=== PATIENT | male | born 1935 | race Caucasian/White ===

== ENCOUNTER 2017-11-05 09:51 | Outpatient (CLI) | payer MEDICARE, OTHER ==
[~2017-11-05] VITALS: Ht 167.6 cm; Wt 58.1 kg
[~2017-11-05 09:51] MED LIST: BECL8.7A7 INH; CLOP75TA15 PO; DRON400T2 PO; MIRT15TA PO; NITR0.4T SL; RIVA20TA PO; ROSU10TA PO; ZOLP12.52 PO
[2017-11-05 10:35] LABS: TOTAL HEMOGLOBIN 14.7 G/dl (14.0-18.0)
[2017-11-05] MEDS ORDERED: albuterol 2.5 MG/3 ML nebule NEB ONE (10:45)
== END 2017-11-05 23:59 | disposition home or self-care (01) ==
LOC: RT 09:51
PROVIDERS: ATTEND Internal Medicine Pulmonary Disease
DX: J44.9 Chronic obstructive pulmonary disease, unspecified (principal); Z88.2 Allergy status to sulfonamides; Z88.5 Allergy status to narcotic agent; Z88.8 Allergy status to other drugs, medicaments and biological substances; Z95.1 Presence of aortocoronary bypass graft; Z98.52 Vasectomy status; Z79.899 Other long term (current) drug therapy; Z87.891 Personal history of nicotine dependence
CPT/HCPCS: 85018; 94060; 94727; 94729; 94760

== ENCOUNTER 2019-02-26 20:56 | Inpatient (IN) | payer MEDICARE, OTHER ==
[~2019-02-26] VITALS: Ht 167.6 cm; Wt 61.2 kg
[~2019-02-26 20:56] MED LIST changes: -ROSU10TA PO; +ROSU10TA2 PO
[2019-02-26] MEDS ORDERED: ondansetron/PF 4mg/2ml inj IV ONE (21:30)
[2019-02-26] MEDS ORDERED: morphine 4 MG/ML inj SYRINge IV ONE (21:30)
--- NOTE | 2019-02-26 21:30 | NUR ---
Dr. Harding made aware Pt triaged as level [address] Mejias entered orders and stated trauma level could be called off.
[2019-02-26 22:06] LABS: BASOPHILS % (AUTO) 0.3 % (0-1); EOSINOPHILS % (AUTO) 0.2 % (0-6); HEMATOCRIT 43.6 % (42.0-52.0); LYMPHOCYTES % (AUTO) 8.1 % (21-51); MEAN CORPUSCULAR HEMOGLOBIN 32.5 PG (27.0-31.0); MEAN CORPUSCULAR HGB CONC 34.5 g/dL (33.0-36.5); MEAN CORPUSCULAR VOLUME 94.2 FL (78-98); MEAN PLATELET VOLUME 8.1 FL (7.4-10.4); MONOCYTES # (AUTO) 1.1 X10'3 (0-0.9); MONOCYTES % (AUTO) 9.2 % (2-12); NEUTROPHILS % (AUTO) 82.2 % (42-75); PLATELET COUNT 265 X10'3 (140-440); RED BLOOD COUNT 4.63 X10'6 (4.70-6.10); RED CELL DISTRIBUTION WIDTH 13.8 % (11.5-14.5); WHITE BLOOD COUNT 12.2 X10'3 (4.5-11.0)
[2019-02-26 22:15] LABS: ALANINE AMINOTRANSFERASE 25 U/L (12-78); ALBUMIN 4.2 G/DL (3.4-5.0); ALBUMIN/GLOBULIN RATIO 1.1 (1.1-1.5); ALKALINE PHOSPHATASE 83 IU/L (46-116); ANION GAP 11 (8-16); ASPARTATE AMINO TRANSFERASE 23 U/L (10-37); BILIRUBIN,TOTAL 0.7 MG/DL (0.1-1.0); BLOOD UREA NITROGEN 19 MG/DL (7-18); BUN/CREATININE RATIO 17.9 (5.4-32.0); CALCIUM 9.6 MG/DL (8.5-10.1); CHLORIDE 93 MMOL/L (99-107); CREATININE 1.06 MG/DL (0.60-1.10); GLUCOSE 207 MG/DL (70-104); POTASSIUM 4.2 MMOL/L (3.5-5.1); SODIUM 130 MMOL/L (135-145); TOTAL CARBON DIOXIDE 26.4 MMOL/L (24-32); TOTAL PROTEIN 8.1 G/DL (6.4-8.2); eGFR 67 ML/MIN
[2019-02-26 22:19] LABS: LIPASE 58 U/L (73-393); TROPONIN I 0.09 NG/ML (0.0-0.05)
[2019-02-26] MEDS ORDERED: iohexol 350MG/ML 100ml bottle IV ONE (22:47)
[2019-02-26 23:40] LABS: COLOR,URINE YELLOW (Yellow); GLUCOSE, URINE 250 mg/dl (Neg); KETONES,URINE NEGATIVE (Neg); LEUKOCYTE ESTERASE ,URINE NEGATIVE (Neg); NITRITES, URINE NEGATIVE (Neg); OCCULT BLOOD,URINE LARGE (Neg); PROTEIN,URINE TRACE mg/dl (Neg); UROBILINOGEN,URINE 0.2 E.U/dL (0.2-1.0)
[2019-02-26 23:45] LABS: CLARITY,URINE SLIGHTLY CLOUDY (Clear); UA COLLECTION TYPE STRAIGHT CATH
[2019-02-26 23:46] LABS: BACTERIA,URINE FEW /HPF (Neg); RBC,URINE 20-50 /HPF (0-2); SQUAMOUS EPITHELIAL CELL,UR FEW /LPF (FEW); WBC,URINE NONE SEEN /HPF (0-4)
[2019-02-26] MEDS ORDERED: LORA-268 PO (23:55)
[2019-02-26] MEDS ORDERED: AMIT-189 PO (23:55)
[2019-02-26] MEDS ORDERED: UMEC62.5 PO (23:55)
[2019-02-26] MEDS ORDERED: ASPI-1053 PO (23:55)
[2019-02-26] MEDS ORDERED: LISI-604 PO (23:55)
[2019-02-26] MEDS ORDERED: PANT40TA4 PO (23:55)
[2019-02-26] MEDS ORDERED: CARV-50 PO (23:55)
[2019-02-27] MEDS ORDERED: aspirin 81mg tab.chew PO ONE (00:35)
[2019-02-27] MEDS ORDERED: potassium Cl 20 mEq SR tablet PO PRN ×2 (01:05)
[2019-02-27] MEDS ORDERED: morphine 2 MG/ML inj. syringe IV PRN ×2 (01:05)
[2019-02-27] MEDS ORDERED: magnesium 2GM in 50ml NS 50 ML IV PRN (01:05)
[2019-02-27] MEDS ORDERED: HYDROcodone/acetaminophen 5mg/325mg tablet PO PRN (01:05)
[2019-02-27] MEDS ORDERED: magnesium Cl slow-release 64mg tablet PO PRN (01:05)
[2019-02-27] MEDS ORDERED: mag hydrox/Alum hydrox/simeth 30ml oral suspension PO PRN (01:05)
[2019-02-27] MEDS ORDERED: magnesium hydroxide 30ml (MOM) UD suspension PO PRN (01:05)
[2019-02-27] MEDS ORDERED: potassium CL 10mEq/100ml bag 100 ML IV PRN ×2 (01:05)
[2019-02-27] MEDS ORDERED: acetaminophen 325mg tablet PO PRN ×2 (01:05)
[2019-02-27] MEDS ORDERED: magnesium 4gm in 100ml NS 100 ML IV PRN (01:05)
[2019-02-27] MEDS ORDERED: bisacodyl 10mg suppository rectal RC PRN (01:05)
[2019-02-27] MEDS ORDERED: ondansetron/PF 4mg/2ml inj IV PRN (01:05)
[2019-02-27] MEDS ORDERED: HYDROcodone/acetaminophen 10/325mg tab PO PRN (01:05)
[2019-02-27] MEDS ORDERED: LORazepam 0.5 MG tablet PO PRN (01:15)
[2019-02-27] MEDS ORDERED: ipratropium/albuterol 3ml nebule NEB PRN (01:15)
--- NOTE | 2019-02-27 02:56 | NUR ---
received report from Jj Stacy RN
[2019-02-27 03:00] VITALS: BP 154/84
--- NOTE | 2019-02-27 03:20 | NUR ---
pt arrived on unit 0305. pt arrived on gurney. pt ambulated to bed using walker. pt is tachypneac. will continue to monitor.
[2019-02-27 06:00] VITALS: BP 141/54
[2019-02-27] MEDS ORDERED: nitroGLYCERIN 0.4mg SUBLingual tab SL PRN (06:35)
--- NOTE | 2019-02-27 06:37 | NUR ---
PT to work with patient. patient has been medicated.
--- NOTE | 2019-02-27 06:37 | NUR ---
gave report to KIM Bazzi
--- NOTE | 2019-02-27 06:37 | NUR ---
Patient in room ORTHO 4021. I have received report from Tati ALVAREZ and had the opportunity to ask questions and assume patient care.
[2019-02-27] MEDS ORDERED: lisinopril 5mg tablet PO SCH (08:00)
[2019-02-27] MEDS ORDERED: docusate sod 100mg capsule PO SCH (08:00)
[2019-02-27] MEDS ORDERED: carVEDilol 12.5mg tablet PO SCH (08:00)
[2019-02-27] MEDS ORDERED: K and/or MAG REPLACEMENT MC SCH (08:00)
[2019-02-27] MEDS ORDERED: atorvastatin 10mg tablet PO SCH (08:00)
[2019-02-27] MEDS ORDERED: pantoprazole 40mg Tablet.DR PO SCH (08:00)
[2019-02-27] MEDS ORDERED: budesonide 0.5mg/2ml UD nebule IH SCH (08:00)
--- NOTE | 2019-02-27 08:14 | NUR ---
Jluis 1919 Re: Neville Hopper Can Pt be off NPO status? No notes why Pt needs to be NPO.
[2019-02-27] MEDS ORDERED: ipratropium/albuterol 3ml nebule NEB SCH (09:00)
[2019-02-27 10:00] VITALS: BP 125/64
[2019-02-27] MEDS ORDERED: HYDR-4383 PO (10:23)
[2019-02-27] MEDS ORDERED: oxyCODONE/APAP 5-325mg tablet PO PRN (12:10)
--- NOTE | 2019-02-27 14:42 | NUR ---
Safe discharge with son. All personal items with patient. Left in private vehicle.
[2019-02-27] MEDS ORDERED: rivaroxaban 20mg tablet PO SCH (21:00)
[2019-02-27] MEDS ORDERED: mirtazapine 15mg tablet PO SCH (21:00)
[2019-02-27] MEDS ORDERED: amitriptyline 50mg tablet PO SCH (21:00)
== END 2019-02-27 14:45 | disposition home or self-care (01) | DRG 551 ==
LOC: ER 20:57 → ED HOLD 02-27 01:02 → ORTHO 4S 02-27 03:02
PROVIDERS: ADMIT Hospitalist; ATTEND Family Medicine
DX: S32.019A Unspecified fracture of first lumbar vertebra, initial encounter for closed fracture (principal); I21.A1 Myocardial infarction type 2; S22.42XA Multiple fractures of ribs, left side, initial encounter for closed fracture; E87.1 Hypo-osmolality and hyponatremia; S32.029A Unspecified fracture of second lumbar vertebra, initial encounter for closed fracture; E78.5 Hyperlipidemia, unspecified; I25.10 Atherosclerotic heart disease of native coronary artery without angina pectoris; I48.91 Unspecified atrial fibrillation; Y93.01 Activity, walking, marching and hiking; W01.0XXA Fall on same level from slipping, tripping and stumbling without subsequent striking against object, initial encounter; J43.2 Centrilobular emphysema; N28.9 Disorder of kidney and ureter, unspecified; Z79.01 Long term (current) use of anticoagulants; Z82.49 Family history of ischemic heart disease and other diseases of the circulatory system; Z95.1 Presence of aortocoronary bypass graft; Y92.89 Other specified places as the place of occurrence of the external cause; Y99.8 Other external cause status; Z88.2 Allergy status to sulfonamides; Z88.8 Allergy status to other drugs, medicaments and biological substances; Z79.899 Other long term (current) drug therapy
CPT/HCPCS: 36415; 70450; 71045; 71260; 74177; 80053; 81001; 83690; 84484; 85025; 87081; 93005; 94640; 94760; 96374; 96375; 97116; 97161; 97530; 99285; G0378; J2270; J2405; J7626; Q9967

== ENCOUNTER 2019-07-24 17:01 | Inpatient (IN) | payer MEDICARE, OTHER ==
[~2019-07-24] VITALS: Ht 167.6 cm; Wt 65.9 kg
[~2019-07-24 17:01] MED LIST changes: +AMIT-189 PO; +ASPI-1053 PO; +CARV-50 PO; -CLOP75TA15 PO; -DRON400T2 PO; +LISI-604 PO; +LORA-268 PO; -NITR0.4T SL; +PANT40TA4 PO; +UMEC62.5 PO; -ZOLP12.52 PO
[2019-07-24] MEDS ORDERED: CefTRIAXone 2gm/D5W 50ml 50 ML IV ONE (17:15)
[2019-07-24] MEDS ORDERED: methylPREDNISolone sod succ 125mg/2ml vial IV ONE (17:20)
[2019-07-24] MEDS ORDERED: diltiazem 5mg/ml 5ml inj. IV ONE (17:40)
--- NOTE | 2019-07-24 17:40 | NUR ---
RT at bedside
[2019-07-24 17:44] LABS: BASOPHILS % (AUTO) 0.4 % (0-1); EOSINOPHILS % (AUTO) 0.1 % (0-6); HEMATOCRIT 44.3 % (42.0-52.0); HEMOGLOBIN 14.6 g/dl (14.0-17.9); LYMPHOCYTES # (AUTO) 0.8 X10'3 (1.1-4.8); LYMPHOCYTES % (AUTO) 9.3 % (21-51); MEAN CORPUSCULAR HEMOGLOBIN 30.1 PG (27.0-31.0); MEAN CORPUSCULAR VOLUME 91.2 FL (78-98); MEAN PLATELET VOLUME 7.8 FL (7.4-10.4); MONOCYTES % (AUTO) 0.3 % (2-12); NEUTROPHILS # (AUTO) 7.9 X10'3 (1.8-7.7); NEUTROPHILS % (AUTO) 89.9 % (42-75); PLATELET COUNT 207 X10'3 (140-440); RED BLOOD COUNT 4.86 X10'6 (4.70-6.10); RED CELL DISTRIBUTION WIDTH 15.4 % (11.5-14.5); WHITE BLOOD COUNT 8.8 X10'3 (4.5-11.0)
[2019-07-24 17:45] LABS: CLARITY,URINE CLOUDY (Clear); COLOR,URINE RED (Yellow)
[2019-07-24] MEDS ORDERED: LORazepam 2 mg/ml vial IV ONE (17:45)
--- NOTE | 2019-07-24 17:45 | NUR ---
Pt extremely anxious. Pt will not do anything asked to do. Pt trying to climb out of the bed. Let pt know that he is hooked up to things and he cannot get out of the bed.
[2019-07-24 17:46] LABS: ABG BASE EXCESS -4.6 mmol/L (-2.0-3.0); ABG HCO3 18.1 mmol/L (22.0-26.0); ABG OXYGEN SATURATION 93.4 % (95-98); ABG PH (T) 7.429 (7.350-7.450); ABG PO2 (T) 64.7 mmHg (83-108); ALLEN'S TEST POSITIVE; FCOHb 0.8 % (0.5-1.5); FLOW 3 L/min; FMetHb 0.1 % (0.3-1.12); FO2Hb 92.6 % (94-100); TOTAL HEMOGLOBIN 15.4 G/dl (14.0-17.9)
[2019-07-24 17:50] LABS: UA COLLECTION TYPE VOIDED
[2019-07-24] MEDS ORDERED: normal saline 1000ML IV soln IVB ONE (17:50)
[2019-07-24 17:53] LABS: BACTERIA,URINE 2+ /HPF (Neg); MUCUS STRANDS NONE SEEN /LPF (Neg); RBC,URINE TNTC /HPF (0-2); RENAL CELLS, URINE FEW /HPF; SQUAMOUS EPITHELIAL CELL,UR FEW /LPF (FEW); WBC,URINE TNTC /HPF (0-4)
[2019-07-24 17:58] LABS: PARTIAL THROMBOPLASTIN TIME 31 SECONDS (22-32)
[2019-07-24 18:03] LABS: ALANINE AMINOTRANSFERASE 32 U/L (12-78); ALBUMIN/GLOBULIN RATIO 1.1 (1.1-1.5); ALKALINE PHOSPHATASE 102 IU/L (46-116); ANION GAP 11 (8-16); ASPARTATE AMINO TRANSFERASE 28 U/L (10-37); BILIRUBIN,TOTAL 0.9 MG/DL (0.1-1.0); BLOOD UREA NITROGEN 12 MG/DL (7-18); BUN/CREATININE RATIO 10.9 (5.4-32.0); CALCIUM 9.4 MG/DL (8.5-10.1); CHLORIDE 95 MMOL/L (99-107); GLUCOSE 206 MG/DL (70-104); POTASSIUM 4.4 MMOL/L (3.5-5.1); SODIUM 133 MMOL/L (135-145); TOTAL CARBON DIOXIDE 27.4 MMOL/L (24-32); TOTAL PROTEIN 7.8 G/DL (6.4-8.2); eGFR 64 ML/MIN
[2019-07-24] MEDS ORDERED: GLIM2TAB6 PO (18:05)
[2019-07-24] MEDS ORDERED: ZOLP12.543 PO (18:05)
[2019-07-24] MEDS ORDERED: CARV-49 PO (18:05)
[2019-07-24] MEDS ORDERED: ROSU5TAB PO (18:05)
[2019-07-24] MEDS ORDERED: AMIT10TA6 PO (18:05)
[2019-07-24 18:09] LABS: MAGNESIUM 1.7 MG/DL (1.5-2.4)
[2019-07-24] MEDS ORDERED: normal saline 1000ML IV soln IV ONE (18:10)
[2019-07-24] MEDS ORDERED: iohexol 350MG/ML 100ml bottle IV ONE (18:28)
[2019-07-24] MEDS ORDERED: ALPR0.5T8 PO (19:26)
[2019-07-24] MEDS ORDERED: PANT-47 PO (19:26)
[2019-07-24] MEDS ORDERED: UMEC1DIS IH (19:26)
[2019-07-24] MEDS ORDERED: magnesium 4gm in 100ml NS 100 ML IV PRN (19:30)
[2019-07-24] MEDS ORDERED: acetaminophen 325mg tablet PO PRN ×2 (19:30)
[2019-07-24] MEDS ORDERED: magnesium 2GM in 50ml NS 50 ML IV PRN (19:30)
[2019-07-24] MEDS ORDERED: potassium Cl 20 mEq SR tablet PO PRN ×2 (19:30)
[2019-07-24] MEDS ORDERED: potassium CL 10mEq/100ml bag 100 ML IV PRN ×2 (19:30)
[2019-07-24] MEDS ORDERED: ondansetron/PF 4mg/2ml inj IV PRN (19:30)
[2019-07-24] MEDS ORDERED: magnesium Cl slow-release 64mg tablet PO PRN (19:30)
--- NOTE | 2019-07-24 19:54 | NUR ---
NOTIFIED HOSPITALIST MAGU OF 2 HOUR LACTIC 5.5. NO NEW ORDERS. WILL CONTINUE TO MONITOR.
[2019-07-24] MEDS: K and/or MAG REPLACEMENT MC SCH (20:00)
[2019-07-24] MEDS ORDERED: dextrose ORAL solution 15 GM/59 ML bottle PO PRN ×2 (20:00)
[2019-07-24] MEDS ORDERED: dextrose 50%-water 50ml dispensing syringe IV PRN ×2 (20:00)
[2019-07-24] MEDS ORDERED: glucagon, human recombinant 1mg kit SUBCUT PRN (20:00)
[2019-07-24] MEDS ORDERED: MESSAGE TO PHARMACY PO ONE (20:00)
[2019-07-24] MEDS ORDERED: ALPRAZolam 0.5mg tablet PO PRN (20:00)
[2019-07-24] MEDS ORDERED: insulin Lispro (HumaLOG) vial - multi-dose SQ SCH (20:00)
[2019-07-24] MEDS: albuterol 2.5 MG/3 ML nebule NEB SCH ×2 (20:45→23:29)
[2019-07-24] MEDS: insulin glargine (Lantus) pen - multi-dose SQ SCH (21:00)
--- NOTE | 2019-07-24 21:15 | NUR ---
Received report from KIM Angulo in ER. Patient c/o SOB and blood in urine. Patient was administered cardizem p.o. for HR in the 130's; now HR is in the 105; solumedrol, and ativan for anxiety. In addition of 2Liters of NS; no more fluids. His COVD19 was negative. Patient arrived to the unit accompanied by OBSTETRICS TEACHER. VS obtained, belongings placed on bedside dresser.
[2019-07-24 21:20] VITALS: BP 111/57
[2019-07-24] MEDS: docusate sod 100mg capsule PO SCH (21:44)
[2019-07-24] MEDS: carvedilol 6.25mg tablet PO SCH (21:44)
--- NOTE | 2019-07-24 22:40 | NUR ---
Paged Dr. Elizondo PAGER ID: [phone] MESSAGE: Claudio Hopper in room # 12A states that he is not DNR and he would like to talk to his first. He cannot call now, because she is sleeping. Pls. advise Thank you-Shalom
--- NOTE | 2019-07-24 22:54 | NUR ---
Paged Dr. Elizondo Page Sent PAGER ID: [phone] MESSAGE: Neville Hopper in Rom # 3012-A. Nurses are not allowed to change status code. Could you please changed the status code, since only physicians can do it. Thank-you Shalom
--- NOTE | 2019-07-24 22:56 | NUR ---
Dr. Elizondo changed status to full code
[2019-07-25] VITALS (7 sets, daily range): BP systolic 113–142; BP diastolic 55–71
--- NOTE | 2019-07-25 02:14 | NUR ---
page sent to Dr. Elizondo regarding Positive result for Page Sent PAGER ID: [phone] MESSAGE: Neville Hopper; Room # 3012-A blood arm left positive gram negative rods. Pt got Rocephin 2gm/D W at 1755 in ER and has another dose schedule at 0800 today. Pt is allergic to Sulfa. Thank you-Shalom Addendum: 07/25/19 at 0218 by Shalom Finley RN Received phone call back from doctor Elizondo. No new orders ordered. states that she will decide later-on
[2019-07-25] MEDS: albuterol 2.5 MG/3 ML nebule NEB SCH ×6 (02:43→23:37)
--- NOTE | 2019-07-25 04:32 | NUR ---
DART: MRSA 6-HB-Zyfx-Assessment
[2019-07-25 05:24] LABS: BASOPHILS % (AUTO) 0 % (0-1); EOSINOPHILS % (AUTO) 0 % (0-6); HEMATOCRIT 35.5 % (42.0-52.0); HEMOGLOBIN 11.8 g/dl (14.0-17.9); LYMPHOCYTES # (AUTO) 0.6 X10'3 (1.1-4.8); LYMPHOCYTES % (AUTO) 3.1 % (21-51); MEAN CORPUSCULAR HEMOGLOBIN 29.6 PG (27.0-31.0); MEAN CORPUSCULAR HGB CONC 33.1 g/dL (33.0-36.5); MEAN CORPUSCULAR VOLUME 89.3 FL (78-98); MEAN PLATELET VOLUME 8.1 FL (7.4-10.4); MONOCYTES # (AUTO) 0.5 X10'3 (0-0.9); MONOCYTES % (AUTO) 2.7 % (2-12); NEUTROPHILS # (AUTO) 18.2 X10'3 (1.8-7.7); NEUTROPHILS % (AUTO) 94.2 % (42-75); PLATELET COUNT 183 X10'3 (140-440); RED BLOOD COUNT 3.97 X10'6 (4.70-6.10); RED CELL DISTRIBUTION WIDTH 15.6 % (11.5-14.5); WHITE BLOOD COUNT 19.3 X10'3 (4.5-11.0)
[2019-07-25 05:33] LABS: ALANINE AMINOTRANSFERASE 25 U/L (12-78); ALBUMIN/GLOBULIN RATIO 0.9 (1.1-1.5); ALKALINE PHOSPHATASE 70 IU/L (46-116); ANION GAP 7 (8-16); ASPARTATE AMINO TRANSFERASE 28 U/L (10-37); BILIRUBIN,TOTAL 0.4 MG/DL (0.1-1.0); BLOOD UREA NITROGEN 11 MG/DL (7-18); BUN/CREATININE RATIO 15.1 (5.4-32.0); CALCIUM 8.1 MG/DL (8.5-10.1); CHLORIDE 99 MMOL/L (99-107); CREATININE 0.73 MG/DL (0.60-1.10); GLUCOSE 230 MG/DL (70-104); POTASSIUM 3.8 MMOL/L (3.5-5.1); SODIUM 132 MMOL/L (135-145); TOTAL CARBON DIOXIDE 26.1 MMOL/L (24-32); TOTAL PROTEIN 6.2 G/DL (6.4-8.2); eGFR > 90 ML/MIN
[2019-07-25 05:36] LABS: MAGNESIUM 1.8 MG/DL (1.5-2.4)
--- NOTE | 2019-07-25 05:49 | NUR ---
Page Sent to Dr Elizondo PAGER ID: [phone] MESSAGE: GREG: Neville Hopper; room # 3012A. Patient last troponin (12 hours) is 0.63 Thank you-Shalom Addendum: 07/25/19 at 0602 by Shalom Finley RN Dr Elizondo called back with instructions to place a Lactic Acid test STAT. Order has been placed
--- NOTE | 2019-07-25 06:31 | NUR ---
Problems reprioritized. Patient report given, questions answered & plan of care reviewed with KIM Esteves. Patient stable at shift change
--- NOTE | 2019-07-25 06:34 | NUR ---
Patient in room PCU 3012A. I have received report from Shalom ALVAREZ and had the opportunity to ask questions and assume patient care.
[2019-07-25] MEDS: K and/or MAG REPLACEMENT MC SCH ×2 (08:00→20:00)
[2019-07-25] MEDS: Umeclidinium Brm/Vilanterol Tr (Anoro Ellipta 62.5-25 Mcg INH) IH SCH (08:00)
[2019-07-25] MEDS: atorvastatin 20mg tablet PO SCH (08:10)
[2019-07-25] MEDS: carvedilol 6.25mg tablet PO SCH ×2 (08:10→20:28)
[2019-07-25] MEDS: docusate sod 100mg capsule PO SCH ×2 (08:10→20:28)
[2019-07-25] MEDS: lisinopril 5mg tablet PO SCH (08:10)
[2019-07-25] MEDS: CefTRIAXone 2gm/D5W 50ml 50 ML IV SCH (08:10)
[2019-07-25] MEDS: pantoprazole 40mg Tablet.DR PO SCH (08:10)
[2019-07-25] MEDS: methylPREDNISolone sod succ 125mg/2ml vial IV SCH (08:11)
--- NOTE | 2019-07-25 09:04 | NUR ---
pt refusing insulin coverage at this time. explained to pt importance of glucose control. pt continues to refuse. primary RN Linn notified.
--- NOTE | 2019-07-25 09:07 | NUR ---
Oliver BURNETT PAGER ID: [phone] MESSAGE: Linn umaña [id number]. GREG lab reported critical lactic 4.4
--- NOTE | 2019-07-25 12:43 | NUR ---
Sheylad PAGER ID: [phone] MESSAGE: Linn umaña [phone]. Jovany [id number]. Patient requesting throat lozenges for cough. May we have an order for it? Thank you!
--- NOTE | 2019-07-25 13:33 | NUR ---
Patient refused insulin coverage for noon blood sugar and lunch carbs. Education provided to patient- patient does not want coverage as he states sugars are well managed at home.
--- NOTE | 2019-07-25 13:43 | NUR ---
DM Consult: A1C 7.1. Pt hx COPD, T2DM taking glimepiride at home, and admit w/ SOB per EMR. Currently AOx3. Written DM ed w/ RD contact information placed in pt chart. Addendum: 07/25/19 at [address] Amended: Links added.
[2019-07-25] MEDS: levoFLOXACIN-Levaquin 500mg/D5 100 ML IV SCH (15:12)
--- NOTE | 2019-07-25 17:00 | NUR ---
patient confirmed that he discussed his code status with is and does want to remain a full code.
--- NOTE | 2019-07-25 18:15 | NUR ---
Patient in room PCU 3012A. I have received report from KIM Esteves and had the opportunity to ask questions and assume patient care. Patient denies CP, SOB, dizziness, n/v, and rated pain 0/10
[2019-07-25] MEDS: lactobacillus rhamnosus 10,000 MMU CELLS/CAPSULE PO SCH (20:28)
[2019-07-25] MEDS: insulin glargine (Lantus) pen - multi-dose SQ SCH (21:00)
--- NOTE | 2019-07-25 21:10 | NUR ---
Patient refused insulin coverage for dinner blood sugar and carbs. He also refused the 21:00, blood sugar night coverage. Re-educated patient.
[2019-07-26 02:00] VITALS: BP 146/69
[2019-07-26] MEDS: albuterol 2.5 MG/3 ML nebule NEB SCH ×6 (03:13→23:59)
[2019-07-26 05:58] LABS: BASOPHILS % (AUTO) 0.2 % (0-1); EOSINOPHILS % (AUTO) 0 % (0-6); HEMATOCRIT 34.5 % (42.0-52.0); HEMOGLOBIN 11.5 g/dl (14.0-17.9); LYMPHOCYTES # (AUTO) 0.9 X10'3 (1.1-4.8); LYMPHOCYTES % (AUTO) 5.4 % (21-51); MEAN CORPUSCULAR HEMOGLOBIN 29.9 PG (27.0-31.0); MEAN CORPUSCULAR HGB CONC 33.4 g/dL (33.0-36.5); MEAN CORPUSCULAR VOLUME 89.7 FL (78-98); MEAN PLATELET VOLUME 8.6 FL (7.4-10.4); MONOCYTES % (AUTO) 5.5 % (2-12); NEUTROPHILS # (AUTO) 15.6 X10'3 (1.8-7.7); NEUTROPHILS % (AUTO) 88.9 % (42-75); PLATELET COUNT 168 X10'3 (140-440); RED BLOOD COUNT 3.85 X10'6 (4.70-6.10); RED CELL DISTRIBUTION WIDTH 15.6 % (11.5-14.5); WHITE BLOOD COUNT 17.6 X10'3 (4.5-11.0)
[2019-07-26 06:07] LABS: ALANINE AMINOTRANSFERASE 23 U/L (12-78); ALBUMIN/GLOBULIN RATIO 0.9 (1.1-1.5); ALKALINE PHOSPHATASE 69 IU/L (46-116); ANION GAP 5 (8-16); ASPARTATE AMINO TRANSFERASE 30 U/L (10-37); BILIRUBIN,TOTAL 0.3 MG/DL (0.1-1.0); BLOOD UREA NITROGEN 19 MG/DL (7-18); BUN/CREATININE RATIO 24.7 (5.4-32.0); CALCIUM 8.6 MG/DL (8.5-10.1); CHLORIDE 99 MMOL/L (99-107); CREATININE 0.77 MG/DL (0.60-1.10); GLUCOSE 166 MG/DL (70-104); MAGNESIUM 2.1 MG/DL (1.5-2.4); POTASSIUM 3.9 MMOL/L (3.5-5.1); SODIUM 133 MMOL/L (135-145); TOTAL PROTEIN 6.3 G/DL (6.4-8.2); eGFR > 90 ML/MIN
--- NOTE | 2019-07-26 06:12 | NUR ---
Problems reprioritized. Patient report given, questions answered & plan of care reviewed with KIM Esteves .
--- NOTE | 2019-07-26 06:28 | NUR ---
Patient in room PCU 3012A. I have received report from Shalom ALVAREZ and had the opportunity to ask questions and assume patient care.
[2019-07-26 06:30] VITALS: BP 140/77
[2019-07-26] MEDS: docusate sod 100mg capsule PO SCH ×2 (07:50→20:40)
[2019-07-26] MEDS: pantoprazole 40mg Tablet.DR PO SCH (07:50)
[2019-07-26] MEDS: carvedilol 6.25mg tablet PO SCH ×2 (07:50→20:41)
[2019-07-26] MEDS: lactobacillus rhamnosus 10,000 MMU CELLS/CAPSULE PO SCH ×2 (07:50→20:42)
[2019-07-26] MEDS: atorvastatin 20mg tablet PO SCH (07:50)
[2019-07-26] MEDS: lisinopril 5mg tablet PO SCH (07:50)
[2019-07-26] MEDS: CefTRIAXone 2gm/D5W 50ml 50 ML IV SCH (07:51)
[2019-07-26] MEDS: methylPREDNISolone sod succ 125mg/2ml vial IV SCH (07:51)
[2019-07-26] MEDS: Umeclidinium Brm/Vilanterol Tr (Anoro Ellipta 62.5-25 Mcg INH) IH SCH (07:58)
[2019-07-26] MEDS: K and/or MAG REPLACEMENT MC SCH ×2 (08:00→20:00)
[2019-07-26] MEDS: levoFLOXACIN-Levaquin 500mg/D5 100 ML IV SCH (08:50)
[2019-07-26 11:00] VITALS: BP 169/78
[2019-07-26 15:00] VITALS: BP 136/67
--- NOTE | 2019-07-26 17:50 | NUR ---
Patient continues to refuse insulin for coverage, education provided
--- NOTE | 2019-07-26 18:33 | NUR ---
Problems reprioritized. Patient report given, questions answered & plan of care reviewed with Amy ALVAREZ.
--- NOTE | 2019-07-26 18:34 | NUR ---
Patient in room PCU 3029Y. I have received report from KIM Esteves and had the opportunity to ask questions and assume patient care. Patient A&O x4. Sitting up and resting comfortably in bed for bedside report. On 2L NC and stable at this time. Will continue to monitor closely.
[2019-07-26 19:00] VITALS: BP 146/68
[2019-07-26] MEDS ORDERED: zolpidem 5mg tablet PO SCH (21:00)
[2019-07-26] MEDS: insulin glargine (Lantus) pen - multi-dose SQ SCH (21:00)
[2019-07-26 23:00] VITALS: BP 135/65
[2019-07-27] MEDS: albuterol 2.5 MG/3 ML nebule NEB SCH ×3 (03:43→11:36)
[2019-07-27 05:02] LABS: LYMPHOCYTES # (AUTO) 1.2 X10'3 (1.1-4.8); LYMPHOCYTES % (AUTO) 10.5 % (21-51); MONOCYTES # (AUTO) 0.7 X10'3 (0-0.9)
[2019-07-27 05:06] LABS: ALANINE AMINOTRANSFERASE 35 U/L (12-78); ALBUMIN 2.9 G/DL (3.4-5.0); ALBUMIN/GLOBULIN RATIO 0.9 (1.1-1.5); ALKALINE PHOSPHATASE 68 IU/L (46-116); ANION GAP 6 (8-16); ASPARTATE AMINO TRANSFERASE 41 U/L (10-37); BASOPHILS % (AUTO) 0.4 % (0-1); BILIRUBIN,TOTAL 0.3 MG/DL (0.1-1.0); BLOOD UREA NITROGEN 19 MG/DL (7-18); BUN/CREATININE RATIO 26.4 (5.4-32.0); CALCIUM 8.2 MG/DL (8.5-10.1); CHLORIDE 99 MMOL/L (99-107); CREATININE 0.72 MG/DL (0.60-1.10); EOSINOPHILS % (AUTO) 0.3 % (0-6); GLUCOSE 147 MG/DL (70-104); HEMATOCRIT 35.8 % (42.0-52.0); MAGNESIUM 2.1 MG/DL (1.5-2.4); MEAN CORPUSCULAR HEMOGLOBIN 29.8 PG (27.0-31.0); MEAN CORPUSCULAR HGB CONC 33.3 g/dL (33.0-36.5); MEAN CORPUSCULAR VOLUME 89.5 FL (78-98); MEAN PLATELET VOLUME 8.8 FL (7.4-10.4); MONOCYTES % (AUTO) 6.4 % (2-12); NEUTROPHILS # (AUTO) 9.1 X10'3 (1.8-7.7); NEUTROPHILS % (AUTO) 82.4 % (42-75); PLATELET COUNT 112 X10'3 (140-440); POTASSIUM 3.9 MMOL/L (3.5-5.1); RED BLOOD COUNT 4.01 X10'6 (4.70-6.10); RED CELL DISTRIBUTION WIDTH 15.5 % (11.5-14.5); SODIUM 132 MMOL/L (135-145); TOTAL CARBON DIOXIDE 27.1 MMOL/L (24-32); TOTAL PROTEIN 6.2 G/DL (6.4-8.2); eGFR > 90 ML/MIN
--- NOTE | 2019-07-27 06:09 | NUR ---
Problems reprioritized. Patient report given, questions answered & plan of care reviewed with KIM NG.
[2019-07-27 07:00] VITALS: BP 157/82
--- NOTE | 2019-07-27 07:12 | NUR ---
Patient in room PCU 3027. I have received report from Valdo ALVAREZ and had the opportunity to ask questions and assume patient care.
[2019-07-27] MEDS: Umeclidinium Brm/Vilanterol Tr (Anoro Ellipta 62.5-25 Mcg INH) IH SCH (08:00)
[2019-07-27] MEDS: K and/or MAG REPLACEMENT MC SCH (08:00)
[2019-07-27] MEDS: levoFLOXACIN-Levaquin 500mg/D5 100 ML IV SCH (08:23)
[2019-07-27] MEDS: pantoprazole 40mg Tablet.DR PO SCH (08:24)
[2019-07-27] MEDS: atorvastatin 20mg tablet PO SCH (08:24)
[2019-07-27] MEDS: lactobacillus rhamnosus 10,000 MMU CELLS/CAPSULE PO SCH (08:24)
[2019-07-27] MEDS: lisinopril 5mg tablet PO SCH (08:24)
[2019-07-27] MEDS: docusate sod 100mg capsule PO SCH (08:24)
[2019-07-27] MEDS: carvedilol 6.25mg tablet PO SCH (08:24)
[2019-07-27] MEDS ORDERED: predniSONE 20 mg tablet PO SCH (08:30)
--- NOTE | 2019-07-27 08:38 | NUR ---
Pt's home medication Elipta not available, requested patient to have family bring in med and he stated, "I don't really need it anyway." Will notify MD to ID med.
--- NOTE | 2019-07-27 08:39 | NUR ---
Pt. is a level 6 accu check, blood sugar 137 this AM. Refused insulin stating his primary follows a different protocol. RBC's explained. notified.
[2019-07-27] MEDS: CefTRIAXone 2gm/D5W 50ml 50 ML IV SCH (10:48)
[2019-07-27 11:00] VITALS: BP 129/75
--- NOTE | 2019-07-27 14:52 | NUR ---
5F SINGLE LUMEN MIDLINE PLACED TO LEFT BASILIC VEIN X'S 1 ATTEMPT WITH SUCCESS USING ULTRASOUND GUIDANCE, TIP ENDING MIDAXILLARY. Vanessa DUNN PIC RN
[2019-07-27 15:00] VITALS: BP 158/86
--- NOTE | 2019-07-27 17:28 | NUR ---
Bean nurse came to educate patient regarding PICC care at home. Pt. verbalized understanding. PIV removed. Tele removed. All discharge instructions were reviewed with patient. He left in stable condition.
--- NOTE | 2019-07-28 13:12 | NUR ---
Case Management DC follow up: spoke to pt via telephone: reports: "doing real well, no trouble with the IV". status post-UTI, sepsis. pt home on ABX 7 days/midline inserting PICC/[facility] infusion. Denies acute/persistent CP, emergent general pain, SOB at rest (back to baseline r/t COPD), resp distress, NV, vertigo, syncope, VITALE, abd distension/tenderness, general/concerning bruising, bleeding, fever, diaphoreses, confusion. Verbalizes understanding of s/s that would warrant 9-11/ER visit for further evaluation. Verbalizes understanding of current Rx; taking as ordered, no ase noted r/t polypharmacy. Continues 24/7 O2 @ 2LMP. [facility] scheduled to be at pt home for intake @ 1400. Acknowledges need to schedule/keep follow up appts w/PCP/Justin. All questions/concerns addressed and answered at DC; Verbalizes understanding of post status after-care compliance. No further questions at this time.
== END 2019-07-27 17:08 | disposition home health service (06) | DRG 871 ==
LOC: ER 17:02 → ED HOLD 19:27 → PCU 3S 21:00
PROVIDERS: ADMIT Internal Medicine; ATTEND Family Medicine
PROC: B32T1ZZ Computerized Tomography (CT Scan) of Left Pulmonary Artery using Low Osmolar Contrast (ICD-10-PCS; principal; 2019-07-24)
PROC: B3201ZZ Computerized Tomography (CT Scan) of Thoracic Aorta using Low Osmolar Contrast (ICD-10-PCS; 2019-07-24)
PROC: B32S1ZZ Computerized Tomography (CT Scan) of Right Pulmonary Artery using Low Osmolar Contrast (ICD-10-PCS; 2019-07-24)
DX: A41.59 Other Gram-negative sepsis (principal); I21.A1 Myocardial infarction type 2; R65.21 Severe sepsis with septic shock; N39.0 Urinary tract infection, site not specified; E87.1 Hypo-osmolality and hyponatremia; J44.1 Chronic obstructive pulmonary disease with (acute) exacerbation; E11.9 Type 2 diabetes mellitus without complications; E78.5 Hyperlipidemia, unspecified; F41.9 Anxiety disorder, unspecified; I10 Essential (primary) hypertension; I48.91 Unspecified atrial fibrillation; Z66 Do not resuscitate; Z79.01 Long term (current) use of anticoagulants; Z87.891 Personal history of nicotine dependence; Z88.1 Allergy status to other antibiotic agents; Z88.2 Allergy status to sulfonamides; Z95.0 Presence of cardiac pacemaker; Z88.5 Allergy status to narcotic agent; Z88.8 Allergy status to other drugs, medicaments and biological substances; Z82.49 Family history of ischemic heart disease and other diseases of the circulatory system
CPT/HCPCS: 36415; 36600; 71045; 71275; 76775; 76937; 80053; 81001; 82803; 82948; 83036; 83605; 83735; 83880; 84145; 84484; 85018; 85025; 85610; 85730; 87040; 87077; 87081; 87088; 87186; 87635; 93005; 93306; 94640; 94760; 96365; 96368; 96375; 97110; 97116; 97162; 97530; 99291; G0378; J0696; J1815; J1956; J2060; J2930; J3490; J7030; J7512; Q9967

== ENCOUNTER 2022-08-12 08:10 | Emergency (ER) | payer MEDICARE, OTHER ==
[~2022-08-12] VITALS: Ht 167.6 cm; Wt 58.6 kg
[~2022-08-12 08:10] MED LIST changes: -AMIT-189 PO; -ASPI-1053 PO; -BECL8.7A7 INH; -CARV-50 PO; +CETI10TA14 PO; +FLUT1BLS16 PO; +IRON45TA7 PO; -LISI-604 PO; +LISI5TAB22 PO; -LORA-268 PO; +METH1TAB32 PO; +METO50TA7 PO; -MIRT15TA PO; -PANT40TA4 PO; +PANT40TA54 PO; -ROSU10TA2 PO; +ROSU40TA22 PO; +SPIR25TA PO; +TICA90TA PO; -UMEC62.5 PO
[2022-08-12] MEDS ORDERED: INSU100I31 SQ (09:52)
[2022-08-12] MEDS ORDERED: DAPA10TA PO (09:52)
[2022-08-12 10:53] VITALS: BP 107/54
== END 2022-08-12 10:57 | disposition home or self-care (01) ==
LOC: ER 08:10
DX: E11.65 Type 2 diabetes mellitus with hyperglycemia (principal); J44.9 Chronic obstructive pulmonary disease, unspecified; I51.9 Heart disease, unspecified; Z88.2 Allergy status to sulfonamides; Z79.899 Other long term (current) drug therapy; Z88.8 Allergy status to other drugs, medicaments and biological substances
CPT/HCPCS: 82948; 99284

== ENCOUNTER 2023-02-20 03:09 | Emergency (ER) | payer MEDICARE, OTHER ==
[~2023-02-20] VITALS: Ht 167.6 cm; Wt 53.6 kg
[~2023-02-20 03:09] MED LIST changes: +DAPA10TA PO; +INSU100I31 SQ
[2023-02-20 04:30] LABS: BILIRUBIN,URINE NEGATIVE (Neg); CLARITY,URINE SLIGHTLY CLOUDY (Clear); COLOR,URINE YELLOW (Yellow); GLUCOSE, URINE >=1000 mg/dl (Neg); KETONES,URINE NEGATIVE (Neg); LEUKOCYTE ESTERASE ,URINE NEGATIVE (Neg); NITRITES, URINE NEGATIVE (Neg); OCCULT BLOOD,URINE LARGE (Neg); PH,URINE 5.5 (4.8-8.0); PROTEIN,URINE NEGATIVE (Neg); UROBILINOGEN,URINE 0.2 E.U/dL (0.2-1.0)
[2023-02-20 04:34] LABS: UA COLLECTION TYPE STRAIGHT CATH
[2023-02-20 04:43] LABS: BACTERIA,URINE FEW /HPF (Neg); RBC,URINE TNTC /HPF (0-2); SQUAMOUS EPITHELIAL CELL,UR FEW /LPF (FEW); WBC,URINE 0-4 /HPF (0-4)
[2023-02-20 08:21] VITALS: TEMP 98.4
[2023-02-20 08:52] LABS: BASOPHILS % (AUTO) 0.3 % (0-1); EOSINOPHILS # (AUTO) 0.1 X10'3 (0-0.9); EOSINOPHILS % (AUTO) 0.6 % (0-6); HEMATOCRIT 29.6 % (42.0-52.0); HEMOGLOBIN 9.1 g/dl (14.0-17.9); LYMPHOCYTES # (AUTO) 0.7 X10'3 (1.1-4.8); LYMPHOCYTES % (AUTO) 7.2 % (21-51); MEAN CORPUSCULAR HGB CONC 30.6 g/dL (33.0-36.5); MEAN CORPUSCULAR VOLUME 75.1 FL (78-98); MEAN PLATELET VOLUME 8.8 FL (7.4-10.4); MONOCYTES # (AUTO) 0.8 X10'3 (0-0.9); MONOCYTES % (AUTO) 7.9 % (2-12); NEUTROPHILS # (AUTO) 8.7 X10'3 (1.8-7.7); PLATELET COUNT 215 X10'3 (140-440); RED BLOOD COUNT 3.94 X10'6 (4.70-6.10); RED CELL DISTRIBUTION WIDTH 20.5 % (11.5-14.5); WHITE BLOOD COUNT 10.4 X10'3 (4.5-11.0)
[2023-02-20 09:05] LABS: ANISOCYTOSIS 3+; MICROCYTOSIS 1+; PLATELET ESTIMATE NORMAL
[2023-02-20 09:06] LABS: BURR CELLS FEW; ELLIPTOCYTES FEW; HYPOCHROMASIA 1+; POIKILOCYTOSIS FEW; POLYCHROMASIA FEW
[2023-02-20] MEDS ORDERED: LidoCAINE 2% Topical Jelly 11mL syringe TOP ONE (09:10)
[2023-02-20 09:26] LABS: ALANINE AMINOTRANSFERASE 18 U/L (12-78); ALBUMIN 3.3 G/DL (3.4-5.0); ALKALINE PHOSPHATASE 69 IU/L (46-116); ANION GAP 10 (8-16); ASPARTATE AMINO TRANSFERASE 18 U/L (10-37); BILIRUBIN,TOTAL 1.1 MG/DL (0.1-1.0); BLOOD UREA NITROGEN 18 MG/DL (7-18); BUN/CREATININE RATIO 22.5 (10.0-20.0); CALCIUM 8.7 MG/DL (8.5-10.1); CHLORIDE 103 MMOL/L (99-107); GLUCOSE 112 MG/DL (70-104); POTASSIUM 3.7 MMOL/L (3.5-5.1); SODIUM 140 MMOL/L (135-145); TOTAL PROTEIN 6.6 G/DL (6.4-8.2); eCRCL 50 ML/MIN; eGFR > 90 ML/MIN
[2023-02-20] MEDS ORDERED: magnesium citrate 296ml oral solution PO ONE (10:15)
[2023-02-20] MEDS ORDERED: POLY119P2 PO (10:22)
[2023-02-20 11:16] VITALS: BP 125/75; PULSE 106; RESP 17; O2SAT 99
== END 2023-02-20 11:19 | disposition home or self-care (01) ==
LOC: ER 03:09
DX: R33.9 Retention of urine, unspecified (principal); K59.00 Constipation, unspecified; J44.9 Chronic obstructive pulmonary disease, unspecified; E11.9 Type 2 diabetes mellitus without complications; Z88.2 Allergy status to sulfonamides; Z79.899 Other long term (current) drug therapy
CPT/HCPCS: 36415; 51702; 74176; 80053; 81001; 85008; 85025; 93005; 99285; A4314; A4340; A4358; C1758